=== PATIENT | female | born 2005 | race Caucasian/White ===

== ENCOUNTER 2024-06-10 04:10 | Emergency (ER) | payer OTHER ==
[2024-06-10] MEDS ORDERED: ONDANSETRON 4 MG/2 ML VIAL ONE (04:42)
[2024-06-10] MEDS ORDERED: NA CHLORIDE 0.9% 1,000 ML ONE (04:43)
[2024-06-10] MEDS ORDERED: Magnesium Sulfate 2gm IVPB 2 G/50 ML BAG IV ONE ×2 (04:43→05:32)
[2024-06-10] MEDS ORDERED: LABETALOL 20 MG/4ML SYRINGE IV ONE ×2 (04:44→05:56)
[2024-06-10 04:48] LABS: Absolute Lymphocytes (CBC) 1.5 K/uL (0.7-4.9); Absolute Monocytes 0.7 K/uL (0.1-1.3); Absolute Neutrophil 11.8 K/uL (1.8-8.0); Basophils % 0.3 % (0-1.3); Eosinophils % 0.3 % (0-4.4); Hematocrit 38.4 % (36.0-45.0); Hemoglobin 13.4 g/dL (12.0-15.0); Lymphocytes % 10.6 % (15.3-44.8); MCH 29.4 pg (27.0-35.0); MCV 84.1 fL (80-100); MPV 12.7 fL (7.6-11.3); Neutrophils % 83.8 % (41.7-73.7); Nucleated Red Blood Cells % 0.1 % (0-0); Platelets 122 thou/uL (152-406); RBC Red Blood Cell Count 4.57 M/uL (3.86-4.86); Red Cell Distribution Width 13.9 % (12.1-15.2)
--- NOTE | 2024-06-10 04:58 | EDPHYS ---
Physician Documentation [facility] Name: Kat Luciano Age: 18 yrs Sex: Female : 2005 Arrival Date: 06/10/2024 Time: 04:10 Bed 7 Private MD: HAROLDO Physician Rodrigo Rosado HPI: 06/10 04:47 This 18 yrs old Female presents to ER via Ambulatory with complaints of mukul Nausea/Vomiting, Est 35wks gestation. 04:47 The patient presents to the emergency department with nausea, vomiting, abdominal pain, mukul of the right upper quadrant and left upper quadrant. Onset: The symptoms/episode began/occurred just prior to arrival. Possible causes: bad food exposure, . The symptoms are aggravated by nothing. The symptoms are alleviated by nothing. Associated signs and symptoms: The patient has no apparent associated signs or symptoms. Severity of symptoms: At their worst the symptoms were mild in the emergency department the symptoms are unchanged. The patient has not experienced similar symptoms in the past. 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 - Infectious Disease History:: Denies. - Social history:: Smoking status: Patient denies any tobacco usage or history of. Patient/guardian denies using alcohol, street drugs. ROS: 04:49 Constitutional: Negative for fever, chills, and weight loss, Eyes: Negative for injury, mukul pain, redness, and discharge, ENT: Negative for injury, pain, and discharge, Neck: Negative for injury, pain, and swelling, Cardiovascular: Negative for chest pain, palpitations, and edema, Back: Negative for injury and pain, : Negative for injury, bleeding, discharge, and swelling, Skin: Negative for injury, rash, and discoloration, Neuro: Negative for headache, weakness, numbness, tingling, and seizure, Psych: Negative for depression, anxiety, suicide ideation, homicidal ideation, and hallucinations, Allergy/Immunology: Negative for hives, rash, and allergies, Endocrine: Negative for neck swelling, polydipsia, polyuria, polyphagia, and marked weight changes, Hematologic/Lymphatic: Negative for swollen nodes, abnormal bleeding, and unusual bruising, 04:49 Respiratory: Positive for cough, 04:49 Abdomen/GI: Positive for abdominal pain, nausea and vomiting, abdominal cramps, of the epigastric area, right upper quadrant and left upper quadrant, Exam: 04:50 Constitutional: This is a well developed, well nourished patient who is awake, alert, mukul and in no acute distress. Head/Face: Normocephalic, atraumatic. Eyes: Pupils equal round and reactive to light, extra-ocular motions intact. Lids and lashes normal. Conjunctiva and sclera are non-icteric and not injected. Cornea within normal limits. Periorbital areas with no swelling, redness, or edema. ENT: Nares patent. No nasal discharge, no septal abnormalities noted. Tympanic membranes are normal and external auditory canals are clear. Oropharynx with no redness, swelling, or masses, exudates, or evidence of obstruction, uvula midline. Mucous membranes moist. Neck: Trachea midline, no thyromegaly or masses palpated, and no cervical lymphadenopathy. Supple, full range of motion without nuchal rigidity, or vertebral point tenderness. No Meningismus. Chest/axilla: Normal chest wall appearance and motion. Nontender with no deformity. No lesions are appreciated. Respiratory: Lungs have equal breath sounds bilaterally, clear to auscultation and percussion. No rales, rhonchi or wheezes noted. No increased work of breathing, no retractions or nasal flaring. Back: No spinal tenderness. No costovertebral tenderness. Full range of motion. Skin: Warm, dry with normal turgor. Normal color with no rashes, no lesions, and no evidence of cellulitis. Neuro: Awake and alert, GCS 15, oriented to person, place, time, and situation. Cranial nerves II-XII grossly intact. Motor strength 5/5 in all extremities. Sensory grossly intact. Cerebellar exam normal. Normal gait. Psych: Awake, alert, with orientation to person, place and time. Behavior, mood, and affect are within normal limits. 04:50 Cardiovascular: Rate: tachycardic, actual rate is 105 bpm, Rhythm: regular, Pulses: Pulses are 4+ in bilateral radial, brachial, femoral, popliteal, posterior tibial and and dorsalis pedis arteries.. Heart sounds: normal, Edema: is not appreciated, 2+ edema to level of left midcalf and right midcalf, JVD: is not appreciated, 04:50 ECG was reviewed by the Attending Physician. Vital Signs: 04:29 BP 164 / 118; Pulse 105; Resp 17 S; Temp 98.5(O); Pulse Ox 98% on R/A; Weight 79.38 kg lg3 (R); Height 5 ft. 3 in. (R); 04:54 BP 165 / 131; Pulse 97; Resp 16; Pulse Ox 97% ; lg3 05:26 BP 149 / 116; Pulse 90; Pulse Ox 96% on R/A; lg3 05:54 BP 160 / 116; Pulse 85; Pulse Ox 96% on R/A; lg3 06:34 BP 150 / 108; Pulse 85; Resp 17 S; Pulse Ox 96% on R/A; lg3 04:29 Body Mass Index 31.00 (79.38 kg, 160.02 cm) lg3 MDM: 04:15 Medical Screening Exam initiated [facility] 04:52 Differential diagnosis: Nonspecific abd pain, viral gastroenteritis, gastroenteritis. [facility] Data reviewed: vital signs, nurses notes, lab test result(s), EKG, radiologic studies, ultrasound. Consideration of Admission/Observation Escalation of care including admission/observation considered. I considered the following discharge prescriptions or medication management in the emergency department Medications were administered in the Emergency Department. See MAR. Independent interpretation of the following test(s) in the Emergency Department EKG: See my EKG interpretation above. Test considered but Not performed: X-ray: no cxr. Historians other than the Patient: Spouse/Significant Other: well informed. Care significantly affected by the following chronic conditions: Obesity, a0. Counseling: I had a detailed discussion with the patient and/or guardian regarding the historical points, exam findings, and any diagnostic results supporting the discharge/admit diagnosis, the presence of at least one elevated blood pressure reading (>120/80) during this emergency department visit, lab results, radiology results, the need to transfer to another facility, for higher level of care, [facility] does not immediately have the required specialist. 06/10 04:16 Order name: CBC with Diff; Complete Time: 05:10 [facility] 06/10 04:16 Order name: Comprehensive Metabolic Panel; Complete Time: 05:16 [facility] 06/10 04:16 Order name: Lipase; Complete Time: 05:16 [facility] 06/10 04:16 Order name: Urinalysis w/ reflexes 06/10 04:31 Order name: BNP; Complete Time: 05:16 [facility] 06/10 04:31 Order name: Troponin High Sensitivity; Complete Time: 05:16 [facility] 06/10 04:31 Order name: US OB Limited 06/10 05:11 Order name: US Abdomen Limited 06/10 05:18 Order name: Chest Single View XRAY 06/10 04:31 Order name: EKG; Complete Time: 04:31 [facility] 06/10 04:16 Order name: FHT's; Complete Time: 04:38 [facility] 06/10 04:31 Order name: Seizure Precautions; Complete Time: 04:37 [facility] 06/10 04:31 Order name: EKG - Nurse/Tech; Complete Time: 04:54 [facility] 06/10 05:19 Order name: NPO; Complete Time: 05:39 [facility] EC:50 Rate is 93 beats/min. Rhythm is regular. QRS [place] is Normal. OR interval is normal. QRS mukul interval is normal. QT interval is normal. No Q waves. T waves are Normal. No ST changes noted. Clinical impression: Normal ECG and No evidence of ischemia. Interpreted by me. Reviewed by me. Administered Medications: 04:55 Drug: Ondansetron IVP 4 mg IVP once; over 2 minutes Route: IVP; Site: right antecubital;lg3 05:26 Follow up: Response: No adverse reaction lg3 04:55 Drug: Labetalol IV 20 mg IV at per protocol once over 2 mins Route: IV; Rate: per lg3 protocol; Infused Over: 2 mins; Site: right antecubital; 05:39 Follow up: Response: No adverse reaction; IV Status: Completed infusion; IV Intake: 5ml lg3 04:56 Drug: NS 0.9% IV 1000 ml IV at 1000 ml once; to be given as a bolus over 60 minutes lg3 Route: IV; Rate: 1000 ml; Site: right antecubital; 05:26 Follow up: Response: No adverse reaction; IV Status: Completed infusion; IV Intake: lg3 1000ml 05:11 Drug: Magnesium Sulfate IVPB 2 grams IVPB once over 1 hrs Route: IVPB; Infused Over: 1 lg3 hrs; Site: right antecubital; 05:27 Follow up: Response: No adverse reaction; IV Status: Completed infusion; IV Intake: lg3 100ml 05:26 Drug: Labetalol IV 20 mg IV at per protocol once over 2 mins Route: IV; Rate: per lg3 protocol; Infused Over: 2 mins; Site: right antecubital; 05:39 Follow up: Response: No adverse reaction; IV Status: Completed infusion; IV Intake: 5ml lg3 05:38 Drug: Magnesium Sulfate IVPB 2 grams IVPB once over 15 mins Route: IVPB; Infused Over: lg3 15 mins; Site: right antecubital; 05:49 Follow up: Response: No adverse reaction; IV Status: Completed infusion; IV Intake: 5ml lg3 05:49 Drug: Piperacillin-Tazobactam IVPB 3.375 grams IVPB once over 60 mins; (mix in NS 100 lg3 mL) Route: IVPB; Infused Over: 60 mins; Site: right antecubital; 06:36 Follow up: Response: No adverse reaction; IV Status: Completed infusion; IV Intake: lg3 100ml 05:50 Drug: Magnesium Sulfate IVPB 1 grams IVPB once over 1 hrs Route: IVPB; Infused Over: 1 lg3 hrs; Site: left antecubital; 06:35 Follow up: Response: No adverse reaction; IV Status: Infusion continued upon transfer; lg3 IV Intake: 85ml 06:04 Drug: Labetalol IV 10 mg IV at per protocol once over 2 mins Route: IV; Rate: per lg3 protocol; Infused Over: 2 mins; Site: right antecubital; 06:36 Follow up: Response: No adverse reaction; IV Status: Completed infusion; IV Intake: lg3 2.5ml 06:04 Drug: Labetalol PO 100 mg PO once Route: PO; lg3 06:35 Follow up: Response: No adverse reaction lg3 Disposition Summary: 06/10/24 04:57 Transfer Ordered Notes: Transfer Location: [facility] mukul Reason: Higher level of care mukul Condition: Fair mukul Problem: new mukul Symptoms: have improved mukul Accepting Physician: [facility](06/10/24 06:47) lg3 Diagnosis - 35 weeks gestation of mukul - Essential (primary) hypertension - Preeclampsia mukul - Edema, unspecified mukul - Vomiting of , unspecified mukul - Elevated white blood cell count mukul - Abnormal level of enzymes in specimens from digestive organs and abdominal cavity - mukul elevated tranaminases Forms: - Medication Reconciliation Form mukul - SBAR form mukul Signatures: Dispatcher [employer] EDRodrigo Galindo MD MD cha Able, Lacie RN RN lg3 Corrections: (The following items were deleted from the chart) 05:11 05:11 Abdomen Limited+US.RAD.BRZ ordered. EDNJ EDMS 05:21 04:57 [facility] mukul mukul 06:47 05:21 [facility] lg3
--- NOTE | 2024-06-10 04:58 | ER ---
Nurse's Notes [facility] Name: Kat Luciano Age: 18 yrs Sex: Female : 2005 Arrival Date: 06/10/2024 Time: 04:10 Bed 7 Private MD: Diagnosis: 35 weeks gestation of ;Essential (primary) hypertension-Preeclampsia;Edema, unspecified;Vomiting of , unspecified;Elevated white blood cell count;Abnormal level of enzymes in specimens from digestive organs and abdominal cavity-elevated tranaminases Presentation: 06/10 04:29 Chief complaint: Patient states: new onset N/V 1930 yesterday. Coronavirus screen: lg3 Client denies travel out of the [place] in the last 14 days. At this time, the client does not indicate any symptoms associated with coronavirus-19. Ebola Screen: No symptoms or risks identified at this time. Initial Sepsis Screen: Does the patient meet any 2 criteria? No. Patient's initial sepsis screen is negative. Does the patient have a suspected source of infection? No. Patient's initial sepsis screen is negative. Risk Assessment: Do you want to hurt yourself or someone else? Patient reports no desire to harm self or others. Onset of symptoms was June 09, 2024. 04:29 Method Of Arrival: Ambulatory lg3 04:29 Acuity: MICHAEL 3 lg3 Triage Assessment: 04:31 General: Appears in no apparent distress. uncomfortable, Behavior is calm, cooperative. lg3 Pain: Denies pain. EENT: No deficits noted. No signs and/or symptoms were reported regarding the EENT system. Neuro: No deficits noted. [place] Agitation-Sedation Scale (RASS): 0 - Alert and Calm Level of Consciousness is awake, alert, obeys commands, Oriented to person, place, time, situation. Cardiovascular: No deficits noted. Denies chest pain, Capillary refill < 3 seconds Clubbing of nail beds is absent JVD is absent Patient's skin is warm and dry. Respiratory: No deficits noted. Reports shortness of breath on exertion Airway is patent Respiratory effort is even, unlabored, Respiratory pattern is regular, symmetrical, Breath sounds are clear bilaterally. GI: Abdomen is round non-distended, Reports intolerance of fluids, intolerance of food, nausea, vomiting. : No signs and/or symptoms were reported regarding the genitourinary system. Derm: No deficits noted. No signs and/or symptoms reported regarding the dermatologic system. Skin is intact, is healthy with good turgor, Skin is dry, Skin is normal, Skin temperature is warm. Musculoskeletal: Circulation, motion, and sensation intact. Capillary refill < 3 seconds, Swelling present in right hand, left hand and left leg. 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 - Infectious Disease History:: Denies. - Social history:: Smoking status: Patient denies any tobacco usage or history of. Patient/guardian denies using alcohol, street drugs. Screenin:34 [facility] ED Fall Risk Assessment (Adult) History of falling in the last 3 months, lg3 including since admission No falls in past 3 months (0 pts) Confusion or Disorientation No (0 pts) Intoxicated or Sedated No (0 pts) Impaired Gait No (0 pts) Mobility Assist Device Used No (0 pt) Altered Elimination No (0 pt) Score/Fall Risk Level 0 - 2 = Low Risk Oriented to surroundings, Maintained a safe environment, Educated pt \T\ family on fall prevention, incl call for assistance when getting out of bed, Assessed \T\ reinforced patient's understanding of fall precautions. Abuse screen: Denies threats or abuse. Denies injuries from another. Nutritional screening: No deficits noted. Tuberculosis screening: No symptoms or risk factors identified. Assessment: 04:34 General: see triage assessment. GI: Abdomen is round non-distended, Reports intolerance lg3 of fluids, intolerance of food, nausea, vomiting. 06:34 Reassessment: Patient appears in no apparent distress at this time. No changes from lg3 previously documented assessment. Patient and/or family updated on plan of care and expected duration. Pain level reassessed. Patient is alert, oriented x 3, equal unlabored respirations, skin warm/dry/pink. Vital Signs: 04:29 BP 164 / 118; Pulse 105; Resp 17 S; Temp 98.5(O); Pulse Ox 98% on R/A; Weight 79.38 kg lg3 (R); Height 5 ft. 3 in. (R); 04:54 BP 165 / 131; Pulse 97; Resp 16; Pulse Ox 97% ; lg3 05:26 BP 149 / 116; Pulse 90; Pulse Ox 96% on R/A; lg3 05:54 BP 160 / 116; Pulse 85; Pulse Ox 96% on R/A; lg3 06:34 BP 150 / 108; Pulse 85; Resp 17 S; Pulse Ox 96% on R/A; lg3 04:29 Body Mass Index 31.00 (79.38 kg, 160.02 cm) lg3 Vitals: 04:34 Heart Tones 160. lg3 ED Course: 04:12 Patient arrived in ED. [email or web address] 04:14 Rodrigo Rosado MD is Attending Physician. mukul 04:31 Triage completed. lg3 04:31 Arm band placed on right wrist. lg3 04:34 Patient has correct armband on for positive identification. Placed in gown. Bed in low lg3 position. Call light in reach. Side rails up X 1. Client placed on continuous cardiac and pulse oximetry monitoring. NIBP monitoring applied. Door closed. Noise minimized. Warm blanket given. Pillow given. Family accompanied patient. 04:34 Initial lab(s) drawn, by ED staff, sent to lab. Inserted saline lock: 22 gauge in right lg3 antecubital area, using aseptic technique. Blood collected. Flushed with 10 mL NS. 04:54 Yen Andersen, RN is Primary Nurse. lg3 04:56 Provided Education on: medications. lg3 05:11 Initiated transfer with [facility]. rv1 05:21 EKG done, by ED staff, reviewed by Rodrigo Rosado MD. oe 05:48 Chest Single View XRAY In Process Unspecified. EDMS 05:49 Inserted saline lock: 22 gauge in left antecubital area, using aseptic technique. lg3 Flushed with 10 mL NS. 05:[address] Vick to [facility] RM 3020. Report rv1 #[id number]. 06:34 No provider procedures requiring assistance completed. Patient transferred, IV remains lg3 in place. 06:59 US OB Limited In Process Unspecified. EDMS 07:00 US Abdomen Limited In Process Unspecified. EDMS Administered Medications: 04:55 Drug: Ondansetron IVP 4 mg IVP once; over 2 minutes Route: IVP; Site: right antecubital;lg3 05:26 Follow up: Response: No adverse reaction lg3 04:55 Drug: Labetalol IV 20 mg IV at per protocol once over 2 mins Route: IV; Rate: per lg3 protocol; Infused Over: 2 mins; Site: right antecubital; 05:39 Follow up: Response: No adverse reaction; IV Status: Completed infusion; IV Intake: 5ml lg3 04:56 Drug: NS 0.9% IV 1000 ml IV at 1000 ml once; to be given as a bolus over 60 minutes lg3 Route: IV; Rate: 1000 ml; Site: right antecubital; 05:26 Follow up: Response: No adverse reaction; IV Status: Completed infusion; IV Intake: lg3 1000ml 05:11 Drug: Magnesium Sulfate IVPB 2 grams IVPB once over 1 hrs Route: IVPB; Infused Over: 1 lg3 hrs; Site: right antecubital; 05:27 Follow up: Response: No adverse reaction; IV Status: Completed infusion; IV Intake: lg3 100ml 05:26 Drug: Labetalol IV 20 mg IV at per protocol once over 2 mins Route: IV; Rate: per lg3 protocol; Infused Over: 2 mins; Site: right antecubital; 05:39 Follow up: Response: No adverse reaction; IV Status: Completed infusion; IV Intake: 5ml lg3 05:38 Drug: Magnesium Sulfate IVPB 2 grams IVPB once over 15 mins Route: IVPB; Infused Over: lg3 15 mins; Site: right antecubital; 05:49 Follow up: Response: No adverse reaction; IV Status: Completed infusion; IV Intake: 5ml lg3 05:49 Drug: Piperacillin-Tazobactam IVPB 3.375 grams IVPB once over 60 mins; (mix in NS 100 lg3 mL) Route: IVPB; Infused Over: 60 mins; Site: right antecubital; 06:36 Follow up: Response: No adverse reaction; IV Status: Completed infusion; IV Intake: lg3 100ml 05:50 Drug: Magnesium Sulfate IVPB 1 grams IVPB once over 1 hrs Route: IVPB; Infused Over: 1 lg3 hrs; Site: left antecubital; 06:35 Follow up: Response: No adverse reaction; IV Status: Infusion continued upon transfer; lg3 IV Intake: 85ml 06:04 Drug: Labetalol IV 10 mg IV at per protocol once over 2 mins Route: IV; Rate: per lg3 protocol; Infused Over: 2 mins; Site: right antecubital; 06:36 Follow up: Response: No adverse reaction; IV Status: Completed infusion; IV Intake: lg3 2.5ml 06:04 Drug: Labetalol PO 100 mg PO once Route: PO; lg3 06:35 Follow up: Response: No adverse reaction lg3 Medication: 04:56 VIS not applicable for this client. lg3 Intake: 05:26 IV: 1000ml; Total: 1000ml. lg3 05:27 IV: 100ml; Total: 1100ml. lg3 05:39 IV: 5ml; Total: 1105ml. lg3 05:39 IV: 5ml; Total: 1110ml. lg3 05:49 IV: 5ml; Total: 1115ml. lg3 06:35 IV: 85ml; Total: 1200ml. lg3 06:36 IV: 100ml; Total: 1300ml. lg3 06:36 IV: 3ml; Total: 1303ml. lg3 Outcome: 04:57 ER care complete, transfer ordered by MD. gilman 06:47 Transferred by ground EMS [facility] Transfer form completed. X-rays lg3 sent w/ patient. 06:47 Condition: stable 06:47 Instructed on the need for transfer, Demonstrated understanding of instructions, 06:47 Patient left the ED. lg3 Signatures: Dispatcher [employer] EDRodrigo Galindo MD MD cha Espinosa, [place] oe Able, Lacie, JAVIER RN lg3 Jessica Bryant Rebecca rv1
[2024-06-10 05:15] LABS: Albumin 1.9 g/dL (3.4-5.0); Albumin/Globulin Ratio 0.5 (1.1-1.8); Anion Gap 13.9 mEq/L (5.0-15.0); Bilirubin Total 0.7 mg/dL (0.2-1.0); Potassium 3.9 mEq/L (3.5-5.1); Protein, Total 5.9 g/dL (6.4-8.2); Troponin High Sensitivity 22.7 pg/mL (<58.9)
[2024-06-10] MEDS ORDERED: NA CHLORIDE 0.9% 100 ML ONE (05:31)
[2024-06-10] MEDS ORDERED: PIPERACIL/TAZO 3.375 GM VIAL IV ONE (05:32)
[2024-06-10] MEDS ORDERED: MAGNESIUM SULFATE 1 gm IVPB 1 GM/100 ML BAG IV ONE (05:32)
[2024-06-10 05:46] LABS: Sqamous Epithelial 20-50 /HPF (None Seen); Urine Bacteria 20-50 /HPF (<20); Urine Bilirubin NEGATIVE (Negative); Urine Blood 3+ (OVER) (Negative); Urine Clarity Extremely Turbid (Clear); Urine Color Orange (Yellow); Urine Crystals Unidentified Few /HPF (None Seen); Urine Culture Reflex Order NOT NEEDED; Urine Glucose 1+ (Negative); Urine Ketones TRACE (Negative); Urine Microscopic Reflex YN ORDER UMIC; Urine Mucus 4+ /HPF (None Seen); Urine Nitrite NEGATIVE (Negative); Urine Protein 3+ (Negative); Urine Urobilinogen Normal (Normal); Urine pH 6.5 (5.0-7.0)
[2024-06-10 05:47] LABS: Specific Gravity > 1.030 (1.005-1.030)
[2024-06-10] MEDS ORDERED: LABETALOL HCL 100 MG TAB ONE (05:56)
--- NOTE | 2024-06-10 06:36 | RAD REPORT ---
EXAM: XR Chest 1 View AP HISTORY: Dyspnea COMPARISON: None TECHNIQUE: Chest 1 View AP FINDINGS: Trachea midline. Heart size and pulmonary vessels within normal limits. Lungs clear without evidence of consolidation, mass, or significant pulmonary edema. No significant pleural effusion or pneumothorax. Mild symmetric bilateral lower lungs/chest density most likely represents overlying breast/chest wall attenuation artifact. Bones unremarkable. IMPRESSION: Normal chest radiograph. Electronically signed by: Kiko Rodas MD 06/10/2024 06:23 AM CDT Due to temporary technical issues with the PACS/Bueeno reporting system, reports are being jazzmine d by the in-house radiologist without review as a courtesy to ensure prompt reporting the interpreting radiologist is fully responsible for the content of the report. Transcribed Date/Time: 06/10/2024 6:36 AM
[2024-06-10 06:59] VITALS: TEMP 98.5
[2024-06-10 07:15] VITALS: O2SAT 96
[2024-06-10 07:17] VITALS: BP 150/108
--- NOTE | 2024-06-10 08:40 | RAD REPORT ---
EXAMINATION: US Abdomen Exam Limited CLINICAL HISTORY: ABD PAIN COMPARISON: None. TECHNIQUE: Limited upper abdominal grayscale and color flow sonographic images. FINDINGS: Gallbladder: Suboptimally distended which limits evaluation, with mild wall prominence at the fundus. However, no significant wall edema elsewhere. No hyperemia or pericholecystic fluid. No evidence of calculi. Bile ducts: No intrahepatic or extrahepatic biliary dilatation. Common bile duct measures 4 mm. Liver: Visualized portions of the liver demonstrate normal echogenicity with no suspicious findings. Fluid: No ascites. IMPRESSION: No significant abnormalities on right upper quadrant ultrasound. Suboptimal gallbladder distention so mewhat limits evaluation.
--- NOTE | 2024-06-10 08:42 | RAD REPORT ---
EXAMINATION: US OB Limited COMPARISON: None. HISTORY: PAIN TECHNIQUE: Real-time ultrasound was performed through the pelvis. A transvaginal scan was performed t o better visualize the intrauterine contents and adnexa. FINDINGS: There is a single living intrauterine . Fetus in cephalic position. Placenta is forming posteriorly. Internal cervical os appears well appose d, with cervical canal measuring 3.22 cm in length. Ovaries were not visualized. There is no free fluid in the cul-de-sac. Measurements and Calculations: Femur length 68.9 mm, consistent with a sonographic age of 35 weeks, 3 days. The patient's LMP dates is not stated. heart rate: 138 BPM. MICK: 13.17 cm, within normal limits. IMPRESSION: Single living intrauterine , with a composite sonographic age of 35 weeks, 3 days. No eviden ce of complications on this limited evaluation.
--- NOTE | 2024-06-13 11:30 | EKG ---
Test Date: 2024-06-10 Test Time: 04:45:04 Manuscripts Archivist: CELSO MEASUREMENT RESULTS: Intervals: Rate: 93 CT: 144 QRSD: 74 QT: 380 QTc: 472 [place]: P: 57 CT: 144 QRS: 78 T: 65 INTERPRETIVE STATEMENTS: Normal sinus rhythm Normal ECG No previous ECG available for comparison Electronically Signed On 06-13-24 11:23:05 CDT by Juan David Earl
== END 2024-06-10 06:47 | disposition short-term general hospital (02) ==
LOC: ER 04:10
DX: O14.93 Unspecified pre-eclampsia, third trimester (principal); O21.9 Vomiting of pregnancy, unspecified; O12.03 Gestational edema, third trimester; D72.829 Elevated white blood cell count, unspecified; R74.01 Elevation of levels of liver transaminase levels; Z3A.35 35 weeks gestation of pregnancy
CPT/HCPCS: 93005; 85025; 81001; 36415; 84484; 83690; 80053; 83880; 71045; 76705; 76815; 99285; J3475 ×3; J2543; J2405; J7030